=== PATIENT | male | born 1960 | race Caucasian/White ===

== ENCOUNTER → 2020-07-23 | Day surgery (SDC) | payer BC, OTHER ==
[~2020-07-23] VITALS: Ht 182.9 cm; Wt 97.1 kg
[~2020-07-23] MED LIST: AMLODIPINE BESY10 MG PO; COREG 25MG TAB25 MG PO; GLIPIZIDE ER5 MG PO; GLUCOPHAGE 500500 MG PO; OZEMPIC0.25 MG/0. SQ; ZESTRIL 40 MG T40 MG PO
== END | disposition home or self-care (01) ==
LOC: OR 07:30
DX: D12.0 Benign neoplasm of cecum (principal); D12.3 Benign neoplasm of transverse colon; K62.1 Rectal polyp; K64.1 Second degree hemorrhoids; I10 Essential (primary) hypertension; E11.9 Type 2 diabetes mellitus without complications; F17.200 Nicotine dependence, unspecified, uncomplicated; Z86.010 Personal history of colon polyps; Z79.84 Long term (current) use of oral hypoglycemic drugs; Z79.899 Other long term (current) drug therapy
CPT/HCPCS: 82962; J2704; J7040